=== PATIENT | female | born 1945 | race Caucasian/White ===

== ENCOUNTER 2021-01-05 12:19 | Emergency (ER) | payer MEDICARE, BC ==
--- NOTE | 2021-01-05 13:24 | EDM.PDOC ---
ED HPI GENERAL MEDICAL PROBLEM - General Chief Complaint: General Stated Complaint: FALL/FACIAL INJURIES Time Seen by Provider: 01/05/21 13:19 Source of Information: Reports: Patient History Limitations: Reports: No Limitations - History of Present Illness INITIAL COMMENTS - FREE TEXT/NARRATIVE: 75-year-old female presents to the ED after tripping over a hose and falling at work at about 1130 this morning. She is also unloading a truck full of meat. She states she landed hard on a concrete sidewalk headfirst. She has a large hematoma of the right frontal forehead. She denies loss of consciousness. Denies any worsening of the pain in her cervical spine. She did break her glasses and scratched up the lens on the right side. Abrasions to the nose but no bleeding from the nose.. No bleeding from the oropharynx. She has pain and swelling over her left thenar eminence and thumb with ecchymoses evident. Patient takes aspirin daily. No injuries to her chest wall abdomen or lower extremities. Onset: Today, Sudden Onset Date: 01/05/21 Onset Time: 11:30 Duration: Hour(s): Location: Reports: Head, Face, Upper Extremity, Left (Injury to the left hand thenar eminence and left thumb.) Quality: Reports: Ache, Throbbing, Other (Mostly in her left hand. Hematoma right forehead) Severity: Moderate Improves with: Reports: None Worsens with: Reports: Other (Touching the area and moving her thumb hurts.) Context: Reports: Trauma (Fall in the workplace.). Denies: Activity, Exercise, Lifting, Sick Contact Associated Symptoms: Reports: No Other Symptoms. 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: Other (see below) (None.) Right Face/Facial Pain Score (Numeric/FACES): 9 - Related Data Allergies Allergy/AdvReac Type Severity Reaction Status Date / Time propoxyphene [From Darvon] Allergy Cannot Verified 01/05/21 12:46 Remember Sulfa (Sulfonamide Allergy Rash Verified 01/05/21 12:46 Antibiotics) Home Meds: Home Meds Ascorbic Acid [Vitamin C] 1 tab PO ASDIRECTED 01/05/21 [History] Aspirin [Caitlin Advanced] 500 mg PO 01/05/21 [History] Cyanocobalamin (Vitamin B-12) [Vitamin B-12] 1 tab PO ASDIRECTED 01/05/21 [History] Loratadine [Claritin] 10 mg PO DAILY 01/05/21 [History] Magnesium 30 mg PO ASDIRECTED 01/05/21 [History] Metoprolol Succinate 200 mg PO 01/05/21 [History] Multivit-Min/Iron/Folic/Lutein [Centrum Silver Women Tablet] 1 tab PO ASDIRECTED 01/05/21 [History] Pyridoxine HCl (Vitamin B6) [Vitamin B-6] 1 tab PO ASDIRECTED 01/05/21 [History] Vitamin A 1 tab PO ASDIRECTED 01/05/21 [History] Zinc 50 mg PO ASDIRECTED 01/05/21 [History] diphenhydrAMINE HCL [Unisom] 1 tab PO ASDIRECTED 01/05/21 [History] Past Medical History HEENT History: Reports: Cataract, Hard of Hearing, Impaired Vision Cardiovascular History: Reports: Afib Respiratory History: Reports: None Gastrointestinal History: Reports: None Genitourinary History: Reports: UTI, Recurrent Other Genitourinary History: URETHAL STRETCHING LINE OUT MAN History: Reports: Musculoskeletal History: Reports: Arthritis, Back Pain, Chronic Neurological History: Reports: Migraines Psychiatric History: Reports: None Endocrine/Metabolic History: Reports: None Hematologic History: Reports: None Immunologic History: Reports: None Oncologic (Cancer) History: Reports: None Dermatologic History: Reports: None - Infectious Disease History Infectious Disease History: Reports: Chicken Pox, Measles, Novel Coronavirus - Past Surgical History Head Surgeries/Procedures: Reports: None HEENT Surgical History: Reports: Cataract Surgery, Tonsillectomy, Other (See Below) Other HEENT Surgeries/Procedures: both ears surgery, damaged middle left ear GI Surgical History: Reports: None Social & Family History - Family History Family Medical History: No Pertinent Family History - Tobacco Use Tobacco Use Status *Q: Never Tobacco User - Caffeine Use Caffeine Use: Reports: Soda - Recreational Drug Use Recreational Drug Use: No - Living Situation & Occupation Living situation: Reports: Occupation: Unemployed ED ROS GENERAL - Review of Systems Review Of Systems: See Below Constitutional: Denies: Fever, Chills, Malaise, Weakness, Fatigue, Decreased Appetite, Weight Loss HEENT: Reports: Glasses Respiratory: Reports: No Symptoms Cardiovascular: Reports: No Symptoms Endocrine: Reports: No Symptoms GI/Abdominal: Reports: No Symptoms : Reports: Frequency Musculoskeletal: Reports: No Symptoms Skin: Reports: Bruising Neurological: Reports: No Symptoms (Bruises easily on aspirin.) Psychiatric: Reports: No Symptoms Hematologic/Lymphatic: Reports: No Symptoms Immunologic: Reports: No Symptoms ED EXAM, GENERAL - Physical Exam Exam: See Below Exam Limited By: No Limitations General Appearance: Alert, WD/WN, Mild Distress, Other (Temperature is 36.3 degrees. Heart rate 70 and sinus respiratory is 18 with O2 sats of 96% on room air BP is mildly elevated at 182/89. It is subsequently come down to 164/84.) Eye Exam: Bilateral Eye: Normal Inspection (No injuries to either eye.) Ears: Normal External Exam Nose: Other (Abrasions to the bridge of her nose and the left alar aspect of the nose causing swelling but no obvious deformity) Throat/Mouth: Normal Inspection (. She has no active bleeding from either nares.), Normal Lips, Normal Oropharynx, Other Head: Other (Patient has a very large 5 to 6 cm diameter hematoma with ecchymoses on the right entire forehead. No other injuries identified to her head.) Neck: Normal Inspection, Limited Range of Motion (She reports some crepitus with lateral rotation which she states she always has. States her neck is always a little bit sore but no worse than normal.), Tender Lateral. No: Lymphadenopathy (L), Lymphadenopathy (R) Respiratory/Chest: No Respiratory Distress, Lungs Clear, Normal Breath Sounds, No Accessory Muscle Use, Other (No pain on firm compression of her ribs or sternum. Clavicles intact acromioclavicular joints intact.) Cardiovascular: Regular Rate, Rhythm, No Edema, No Gallop, No Murmur, No Rub Peripheral Pulses: 2+: Posterior Tibial (L), Posterior Tibial (R), Dorsalis Pedis (L), Dorsalis Pedis (R) GI/Abdominal: Normal Bowel Sounds, Soft, Non-Tender, No Organomegaly, No Abnormal Bruit, No Mass, Pelvis Stable, Other (No abdominal wall injuries.) Back Exam: Normal Inspection, Full Range of Motion, Other (Mild kyphosis thoracic spine.). No: CVA Tenderness (L), CVA Tenderness (R) Extremities: Other (Right upper extremity appears to not be injured. On the left there is marked ecchymoses of her entire left thumb in the thenar eminence in the distribution of the first metacarpal. No wrist pain no elbow pain no s houlder pain on either side. Lower extremity shows a minimal abrasion to the right p) Neurological: Alert ( nothing on the left. She can walk normally.), Oriented, CN II-XII Intact, Normal Cognition, Normal Gait Psychiatric: Normal Affect, Normal Mood Skin Exam: Warm, Dry, Other. No: Intact, Normal Color, No Rash (Multiple facial abrasions and contusions. No wounds that will require laceration repair) Course - Vital Signs Last Recorded V/S: Last Vital Signs Temp 36.6 C 01/05/21 14:40 Pulse 66 01/05/21 14:40 Resp 16 01/05/21 14:40 BP 154/83 H 01/05/21 14:40 Pulse Ox 97 01/05/21 14:40 - Radiology Interpretation Free Text/Narrative:: 75-year-old female presents to the ED after tripping and falling over holes at home this morning. She landed hard on the concrete sidewalk striking her left right side of her forehead on the concrete. No loss of consciousness. She broke her glasses and scratched up the right lens. She suffered abrasions to both sides of her nose and the bridge of the nose with some swelling but clinically no fracture of the nose. No injuries to the tongue or dentition. Cervical spine appears to be intact. There was no reported loss of consciousness. She has also suffered injuries to her left hand with marked swelling of the thenar eminence and left thumb. Plan CT maxillofacial bones. CT head. X-ray left hand. - Re-Assessments/Exams Free Text/Narrative Re-Assessment/Exam: 01/05/21 14:09 CT of the maxilla facial bones revealed slight degenerative change scattered within the cervical spine. Minimal callosal thickening is seen within the right inferior maxillary sinus. Nothing acute is seen within the paranasal sinuses. Right and left globes are symmetric. No retrobulbar abnormalities appreciated. Soft tissue swelling is seen within the frontal scalp. No acute focal facial abnormalities appreciated. Degenerative changes noted within both temporomandibular joints. CT of the head reveals ventricles along with the basal cisterns and sulci over the convexities are within normal limits for the patient's age. No abnormal parenchymal densities are seen. Slight artifact is noted from ear hardware on the right side. Soft tissue swelling is noted within the frontal scalp. Bone window settings were reviewed which show no discrete abnormality within the visualized paranasal sinuses or mastoid sinuses. Previous surgery is noted within the left mastoid sinus and left middle ear cavity. No acute calvarial abnormalities appreciated. Mild atherosclerotic calcification is seen within the carotid siphon and within the vertebral vessels. X-ray of the left hand x4 view was done. Mild scattered degenerative changes noted osteopenia is present in the digits. No acute fracture, dislocation or other abnormality is appreciated. Plan patient will cleanse her abrasions daily with soap and water. I will check on her tetanus toxoid status. Dave wrap will be applied to the left hand. It is to be elevated at heart level for 2 days and Dave wrap on during the day and off at night. Ice pack to the area 1/2-hour out of every 4 hours for the next 2 days. Departure - Departure Time of Disposition: 14:18 Disposition: Home, Self-Care 01 Condition: Fair Clinical Impression: Abrasion, nose w/o infection, Contusion of left hand, initial encounter Fall Qualifiers: Encounter type: initial encounter Qualified Code(s): W19.XXXA - Unspecified fall, initial encounter Traumatic hematoma of forehead Qualifiers: Encounter type: initial encounter Qualified Code(s): S00.83XA - Contusion of other part of head, initial encounter - Discharge Information *PRESCRIPTION DRUG MONITORING PROGRAM REVIEWED*: Not Applicable *COPY OF PRESCRIPTION DRUG MONITORING REPORT IN PATIENT HAN: Not Applicable Instructions: Facial or Scalp Contusion, [id number], Contusion, [id number] Referrals: Suzanne Gil MD [Primary Care Provider] - Forms: ED Department Discharge Additional Instructions: Evaluation in the emergency room today in regards to a fall outside this morning striking your right forehead on a concrete sidewalk. This resulted in a large hematoma over your entire right forehead. CT scan of the brain and head reveals no cracks in the skull and no intracranial bleeding. CT scan of the maxilla facial bones or facial bones does not reveal any broken bones around the nose around the eyes or into the sinuses in the face. It does show a mild chronic sinusitis in the inferior part of the right maxillary sinus in your facial cheek bone. Previous surgery to the left mastoid and inner ear is appreciated. No nasal bone fractures identified. X-rays of your left hand reveal marked ecchymosis and swelling of the hand but no broken bones in the thumb or in the hand identified. Suggest Dave wrap on your hand as we applied in the ED for the next 2 days. Ice pack to the area for 1/2-hour out of every 4 hours for 2 days to reduce pain and swelling. Similarly on your forehead you can place ice pack for 20 minutes out of every 3 hours for the next 2 days to reduce swelling and pain. It is okay to use either Tylenol or Motrin or Advil for pain relief as needed. I would suggest applying bacitracin or Polysporin to your abrasions on your nose at least once daily either in the morning or before bed until they are healed. Sepsis Event Note (ED) - Evaluation Sepsis Screening Result: No Definite Risk - Focused Exam Vital Signs: Vital Signs Temp Pulse Resp BP Pulse Ox 01/05/21 14:40 36.6 C 66 16 154/83 H 97 01/05/21 12:56 36.3 C 70 18 182/89 H 96
--- NOTE | 2021-01-05 13:53 | CR ---
Left hand: 4 views of the left hand were obtained. Comparison: No prior hand study is available. Mild scattered degenerative change is noted. Osteopenia is present. No acute fracture, dislocation or other bony abnormality is appreciated. Impression: 1. Mild scattered degenerative change and osteopenia. 2. No acute osseous abnormality is appreciated on left hand exam. Diagnostic code #2
--- NOTE | 2021-01-05 14:05 | CT ---
Head CT Technique: Multiple axial sections through the brain were obtained. Intravenous contrast was not utilized. Reconstructed coronal and sagittal images were obtained. Comparison: No prior intracranial imaging is available. Findings: Ventricles along with basal cisterns and sulci over the convexities are within normal limits for the patient's age. No abnormal parenchymal densities are seen. Slight artifact is noted from ear hardware on the right side. Soft tissue swelling is noted within the frontal scalp. Bone window settings were reviewed which show no discrete abnormality within the visualized paranasal sinuses or mastoid sinuses. Previous surgery is noted within the left mastoid sinus and left middle ear cavity. No acute calvarial abnormality is appreciated. Mild atherosclerotic calcification is seen within the carotid siphon and within the vertebral vessels. Impression: 1. Soft tissue swelling within the frontal scalp. 2. Artifact from ear hardware. 3. Nothing acute is appreciated on noncontrast head CT study. Diagnostic code #2
--- NOTE | 2021-01-05 14:05 | CT ---
CT maxillofacial Technique: Multiple axial sections were obtained. Reconstructed coronal and sagittal images were obtained. Comparison: No prior facial bone study is available. Findings: Slight degenerative change scattered within the cervical spine is noted. Minimal mucosal thickening is seen within the right inferior maxillary sinus. Nothing acute is seen within the paranasal sinuses. Right and left globes are symmetric. No retrobulbar abnormality is appreciated. Soft tissue swelling is seen within the frontal scalp. No acute facial abnormality is appreciated. Degenerative change is noted within both temporomandibular joints. Impression: 1. Degenerative change as noted above. 2. Minimal mucosal thickening within the right inferior maxillary sinus. 3. Soft tissue swelling within the frontal scalp. 4. No acute facial bone abnormality is seen. Diagnostic code #2
== END 2021-01-05 14:44 | disposition home or self-care (01) ==
LOC: JD.ED 12:19
DX: S00.83XA Contusion of other part of head, initial encounter (principal); S60.222A Contusion of left hand, initial encounter; Z88.2 Allergy status to sulfonamides; Z88.8 Allergy status to other drugs, medicaments and biological substances; Z79.82 Long term (current) use of aspirin; Z79.899 Other long term (current) drug therapy; Z86.16 Personal history of COVID-19; W01.0XXA Fall on same level from slipping, tripping and stumbling without subsequent striking against object, initial encounter; Y99.0 Civilian activity done for income or pay
CPT/HCPCS: 70450; 70450-26; 70486; 70486-26; 73130-26-LT; 73130-LT; 99283; 99284-25